=== PATIENT | male | born 2000 | race Caucasian/White ===

== ENCOUNTER 2020-04-12 21:57 | Emergency (ER) | payer OTHER ==
[~2020-04-12 21:57] MED LIST: ZOFRAN ODT 4 MG4 MG PO
[2020-04-12] MEDS ORDERED: LODINE CAP 300300 MG PO (23:06)
== END 2020-04-12 23:30 | disposition home or self-care (01) ==
LOC: ER1 21:57
DX: S93.402A Sprain of unspecified ligament of left ankle, initial encounter (principal); X50.1XXA Overexertion from prolonged static or awkward postures, initial encounter; Y93.67 Activity, basketball; Y92.009 Unspecified place in unspecified non-institutional (private) residence as the place of occurrence of the external cause
CPT/HCPCS: 73610; 99283

== ENCOUNTER 2021-11-17 01:14 | Emergency (ER) | payer SELFPAY ==
[~2021-11-17 01:14] MED LIST changes: +LODINE CAP 300300 MG PO
[2021-11-17 02:11] LABS: HEMOGLOBIN 16.6 gm/dl (14.0-17.5); RED BLOOD COUNT 5.52 M/UL (4.20-5.50); WHITE BLOOD COUNT 11.8 K/UL (4.5-11.0)
[2021-11-17 02:34] LABS: BUN/CREATININE RATIO 12 (0-10)
[2021-11-17] MEDS ORDERED: IBU600 MG PO (04:37)
== END 2021-11-17 04:55 | disposition home or self-care (01) ==
LOC: ER1 01:14
PROVIDERS: Student in an Organized Health Care Education/Training Program
DX: R07.89 Other chest pain (principal); J02.9 Acute pharyngitis, unspecified; Z20.822 Contact with and (suspected) exposure to COVID-19
CPT/HCPCS: 71045; 80053; 82550; 82553; 84484; 85025; 85379; 87081; 87880; 93005; 96372; 99285; J1885; U0002